=== PATIENT | female | born 1985 | race Caucasian/White ===

== ENCOUNTER → 2023-03-23 | Outpatient (CLI) | payer SELFPAY ==
[2023-03-23 16:57] LABS: Basophils # (A) 0.09 X 10*3/uL (0.00-0.10); Basophils % (A) 0.8 %; Eosinophils # (A) 0.43 X 10*3/uL (0.04-0.35); HCT 40.2 % (37.2-46.3); HGB 12.6 d/dL (12.0-15.0); Lymphocytes # (A) 3.24 X 10*3/uL (0.90-5.00); Lymphocytes % (A) 30.4 %; MCH 25.2 pg (27.0-32.0); MCHC 31.3 d/dL (32.0-37.0); MCV 80.4 FL (80.0-97.0); Mean Platelet Volume 8.5 FL (9.5-12.2); Monocytes # (A) 0.58 X 10*3/uL (0.20-1.00); Monocytes % (A) 5.4 %; NRBC Per 100 WBC 0 X 10*3/uL (0.00-0.01); Neutrophils # (A) 6.29 X 10*3/uL (1.80-7.70); Neutrophils % (A) 59.1 %; Platelet Count 414 X 10*3/uL (140-440); RDW 15.9 % (11.5-14.5); WBC 10.66 X 10*3/uL (4.50-10.00)
[2023-03-23 17:23] LABS: ALT 9 U/L (8-44); AST 17 U/L (13-35); Albumin 3.9 d/dL (3.8-4.9); Albumin/Globulin Ratio 0.95 Ratio (1.60-3.17); Alkaline Phosphatase 89 U/L (41-126); BUN/Creat Ratio 10.86 Ratio (12.00-20.00); Blood Urea Nitrogen 7.6 mg/dL (9.0-27.0); Calcium 9.3 mg/dL (8.7-10.3); Carbon Dioxide 22.1 mmol/L (21.6-31.8); Chloride 104 mmol/L (96-109); Chol/HDL Ratio 3.17 Ratio; Globulin 4.1 d/dL (1.6-3.3); Glucose 93 mg/dL (70-110); HCG,Quantitative Serum <3.0 mIU/mL (0.0-6.0); LDL Cholesterol,Calculated 108.5 mg/dL (0.0-131.0); Potassium 4.7 mmol/L (3.5-5.5); Sodium 137 mmol/L (135-145); Total Bilirubin 0.3 mg/dL (0.3-1.2)
== END | disposition home or self-care (01) ==
LOC: LABWHC1 09:34
PROVIDERS: ATTEND Family Medicine
DX: F31.9 Bipolar disorder, unspecified (principal); N93.9 Abnormal uterine and vaginal bleeding, unspecified
CPT/HCPCS: 36415; 80053; 80061; 84702; 85025

== ENCOUNTER → 2024-10-14 | Outpatient (CLI) | payer OTHER | END | disposition home or self-care (01) | LOC: LABWHC1 09:13 | DX: Z79.899 Other long term (current) drug therapy (principal); E66.813 Obesity, class 3; E66.01 Morbid (severe) obesity due to excess calories; Z68.42 Body mass index [BMI] 45.0-49.9, adult | CPT/HCPCS: 36415; 86480 ==